=== PATIENT | female | born 1970 | race Caucasian/White ===

== ENCOUNTER 2024-04-01 12:56 | Outpatient (CLI) | payer BC, SELFPAY ==
[2024-04-01 14:05] LABS: Hepatitis B Surface Antigen Negative (Negative)
[2024-04-01 14:23] LABS: Hepatitis B Surface Anti Res Negative
[2024-04-04 08:13] LABS: Hepatitis B Core Ab Total NON-REACTIVE (NON-REACTIVE)
== END 2024-04-01 12:57 | disposition home or self-care (01) ==
LOC: ANHLAB 12:59
PROVIDERS: Visit Provider Psychiatry & Neurology Neurology
DX: G35 Multiple sclerosis (principal)
CPT/HCPCS: 36415; 86704; 86706; 87340